=== PATIENT | male | born 1990 | race Caucasian/White ===

== ENCOUNTER 2019-04-06 19:50 | Emergency (ER) | payer SELFPAY ==
[2019-04-06 19:55] VITALS: BP 114/77; BMI 33.3
[2019-04-06] MEDS ORDERED: SODIUM CHLORIDE 2,722 ML IV ONE (20:23)
--- NOTE | 2019-04-06 20:23 | PDOC ---
History of Present Illness - General Chief Complaint: Respiratory Stated Complaint: FEVER Time Seen by Provider: 04/06/19 20:19 History Source: Patient - History of Present Illness Initial Comments: 04/06/19 20:45 Chief complaint: Fever Patient is a healthy 28-year-old male with 3 days of fever, cough, vomiting since yesterday. GENERAL/CONSTITUTIONAL: No fever, weakness. dizziness HEAD, EYES, EARS, NOSE AND THROAT: No change in vision. No ear pain or discharge. No sore throat. CARDIOVASCULAR: No chest pain RESPIRATORY: + shortness of breath or cough GASTROINTESTINAL: + pain, nausea, vomiting, diarrhea or constipation GENITOURINARY: No dysuria MUSCULOSKELETAL: No neck or back pain SKIN: No rash NEUROLOGIC: No headache, vertigo, loss of consciousness, or loss of sensation. GENERAL: The patient is awake, alert, and fully oriented, in no acute distress. HEAD: Normal with no signs of trauma. EYES: Pupils equal, round and reactive to light, sclera anicteric, conjunctiva clear. ENT: pharynx: no erythema, no exudate, uvula midline NECK: supple CHEST: Poor inspiration, unable to take full inspiration and starts coughing, nontender, rr ABD: soft, epigastric tenderness BACK: no tenderness or signs of injury EXTREMITIES: Normal range of motion, no edema. NEUROLOGICAL: Normal speech, normal gait. SKIN: Warm, Dry Past History - Past Medical History Allergies/Adverse Reactions: Allergies Allergy/AdvReac Type Severity Reaction Status Date / Time No Known Allergies Allergy Verified 04/06/19 19:55 Home Medications: Ambulatory Orders No Home Medications 0 dose .ROUTE UTDICT 03/31/13 Azithromycin [Zithromax -] 250 mg PO UTDICT #6 tab 04/07/19 Oseltamivir Phosphate [Tamiflu] 75 mg PO BID #10 capsule 04/07/19 COPD: No GI Disorders: Yes (GASTRITIS) - Psycho Social/Smoking Cessation Hx Smoking History: Never smoked Have you smoked in the past 12 months: No Number of Cigarettes Smoked Daily: 0 Hx Alcohol Use: No *Physical Exam - Vital Signs Last Vital Signs Temp Pulse Resp BP Pulse Ox 102.9 F H 103 H 20 114/77 93 L 04/06/19 19:53 04/06/19 19:53 04/06/19 19:53 04/06/19 19:53 04/06/19 19:53 Heart Score/ECG Review - ECG Intrepretation Comment:: 04/06/19 22:38 2208 normal sinus rhythm at 83, QTc 439, no ST or T wave changes ED Treatment Course - LABORATORY CBC & Chemistry Diagram: 04/06/19 20:45 04/06/19 20:45 Medical Decision Making - Medical Decision Making 04/06/19 20:47 28-year-old male with 3 days of fever, cough, vomiting, epigastric pain. Patient's tachycardic, febrile, oxygen level of 93, poor respiratory effort, unable to take a deep breath. Patient may have the flu, pneumonia, been vomiting, epigastric pain, will get sepsis screening, fluids, Zofran, Tylenol. Patient will be transferred to the main ER for higher level of care discussed with Dr. Storm Patient is flu A positive, will give Tamiflu, patient will get nebulizer treatment, patient will be signed out to [facility] as per Dr. Storm Patient does not smoke or drink alcohol 04/06/19 22:05 Patient is able to take better breaths, no obvious wheezing or rhonchi, patient sat off oxygen is 92% 04/06/19 22:35 temp 101.3, will give motrin 04/07/19 12:28 In reviewing chart saw the patient had official x-ray report that showed he had pneumonia. Called patient to discuss with him further. Patient states his breathing is improved but he has headache. Instructed patient how to treat headache with Motrin and Tylenol and frequency. Encourage patient to come back so he can be evaluated in person. Patient states his is also sick and that she is probably coming to the hospital and he has a 3-year-old he does not want to leave at home. Again patient was encouraged to return to the ER and informed that he can get much sicker. [place] 65 does not recommend hospitalization at this time, discussed antibiotics and since patient is reluctant to return to the ER now will send prescription for Zithromax to pharmacy of choice. 04/07/19 12:31 Discharge - Discharge Information Problems reviewed: Yes Clinical Impression/Diagnosis: Shortness of breath, Influenza A Fever Qualifiers: Fever type: unspecified Qualified Code(s): R50.9 - Fever, unspecified Condition: Fair Disposition: HOME - Additional Discharge Information Prescriptions: Azithromycin [Zithromax -] 250 mg PO UTDICT #6 tab Oseltamivir Phosphate [Tamiflu] 75 mg PO BID #10 capsule - Follow up/Referral Referrals: Mauri Stanley MD [Staff Physician] - - Patient Discharge Instructions Patient Printed Discharge Instructions: DI for H1N1 Influenza -- Adult Additional Instructions: Your Discharge Instructions: You must call primary care physician within 24 hours to arrange follow-up. Return to the Emergency Department with any new, persistent or worsening symptoms, for fever, chills, SOB, dizziness or any other concerning changes that may occur. Drink plenty of fluids. Take the Tamiflu as prescribed. Take Tylenol as needed for pain and fever. - Post Discharge Activity Work/Back to School Note: Back to Work
[2019-04-06] MEDS ORDERED: ACETAMINOPHEN 1000 MG/100 ML VIAL (NON FORMULARY) IVPB ONE (20:25)
[2019-04-06] MEDS ORDERED: ONDANSETRON 4 MG/2 ML VIAL IVPUSH ONE (20:25)
[2019-04-06 21:07] LABS: BASO % 0.5 % (0-2.0); EOS % 0.1 % (0-4.5); HEMATOCRIT 46.8 % (35.4-49); HEMOGLOBIN 16.1 GM/dL (11.7-16.9); LYMPH % 17.9 % (8-40); MCH 30.9 pg (25.7-33.7); MCHC 34.5 g/dl (32.0-35.9); MEAN CELL VOLUME 89.5 fl (80-96); MEAN PLT VOLUME 8.3 fl (7.5-11.1); MONO % 8.7 % (3.8-10.2); NEUT % 72.8 % (42.8-82.8); PLATELET COUNT 179 K/MM3 (134-434); RBC 5.23 M/mm3 (4.00-5.60); RDW 13.3 % (11.9-15.9); WHITE BLOOD COUNT 7.4 K/mm3 (4.0-10.0)
[2019-04-06] MEDS ORDERED: ALBUTEROL SO4 2.5/IPRATROPIUM 0.5 INH SOL 3 ML VIAL.NEB. NEB ONE (21:16)
[2019-04-06] MEDS ORDERED: OSELTAMIVIR PHOSPHATE 75 MG CAPSULE PO ONE (21:16)
[2019-04-06 21:20] LABS: INR 1.21 (0.83-1.09); PROTHROMBIN TIME (PATIENT) 14.3 SEC (9.7-13.0)
[2019-04-06] MEDS ORDERED: OSELTAMIVIR PHOSPHATE 75 MG CAPSULE ONE (21:22)
[2019-04-06 21:23] LABS: ACTIVATED PTT 38.4 SECONDS (25.2-36.5)
[2019-04-06 21:42] LABS: BILIRUBIN,TOTAL 0.5 mg/dL (0.2-1); BLOOD UREA NITROGEN 12.3 mg/dL (7-18); CALCIUM 8.8 mg/dL (8.5-10.1); POTASSIUM 3.7 mmol/L (3.5-5.1); TOT PROT 8.2 g/dl (6.4-8.2)
[2019-04-06] MEDS ORDERED: IBUPROFEN 600 MG TABLET (FP) PO ONE ×2 (22:36→22:39)
--- NOTE | 2019-04-07 00:03 | PDOC ---
*Physical Exam - Vital Signs Last Vital Signs Temp Pulse Resp BP Pulse Ox 102.9 F H 103 H 20 114/77 93 L 04/06/19 19:53 04/06/19 19:53 04/06/19 19:53 04/06/19 19:53 04/06/19 19:53 ED Treatment Course - LABORATORY CBC & Chemistry Diagram: 04/06/19 20:45 04/06/19 20:45 - ADDITIONAL ORDERS Additional order review: Laboratory Results 04/06/19 04/06/19 04/06/19 20:45 20:45 20:45 PT with INR 14.30 H INR 1.21 H PTT (Actin FS) 38.4 H Sodium 137 Potassium 3.7 Chloride 104 Carbon Dioxide 24 Anion Gap 10 BUN 12.3 Creatinine 1.0 Est GFR (CKD-EPI)AfAm 118.19 Est GFR (CKD-EPI)NonAf 101.97 Random Glucose 92 Lactic Acid 1.6 Calcium 8.8 Total Bilirubin 0.5 AST 212 H ALT 291 H Alkaline Phosphatase 83 Total Protein 8.2 Albumin 4.0 Lipase 373 04/06/19 20:45 RBC 5.23 MCV 89.5 MCHC 34.5 RDW 13.3 MPV 8.3 Neutrophils % 72.8 Lymphocytes % 17.9 D Monocytes % 8.7 Eosinophils % 0.1 D Basophils % 0.5 - Medications Given in the ED: ED Medications Discontinued Medications Generic Name Dose Route Start Last Admin Trade Name Freq PRN Reason Stop Dose Admin Acetaminophen 1,000 mg 04/06/19 20:25 04/06/19 21:06 Ofirmev Injection - IVPB 04/06/19 20:26 1,000 mg ONCE ONE Administration Albuterol/Ipratropium 1 amp 04/06/19 21:16 04/06/19 21:20 Duoneb - NEB 04/06/19 21:17 1 amp ONCE ONE Administration Sodium Chloride 2,722 mls @ 1,361 mls/hr 04/06/19 20:23 04/06/19 21:06 Normal Saline - 30 ml/kg infuse over 2 hr (2722 ml) 04/06/19 22:22 1,361 mls/hr IV Administration ONCE ONE Ibuprofen 600 mg 04/06/19 22:36 04/06/19 22:40 Motrin - PO 12/07/19 22:37 600 mg ONCE ONE Administration Ondansetron HCl 4 mg 04/06/19 20:25 04/06/19 21:06 Zofran Injection IVPUSH 04/06/19 20:26 4 mg ONCE ONE Administration Oseltamivir Phosphate 75 mg 04/06/19 21:16 04/06/19 21:25 Tamiflu - PO 04/06/19 21:17 75 mg ONCE ONE Administration Medical Decision Making - Medical Decision Making 04/07/19 00:01 Patient endorsed to me to follow labs, x-ray and disposition. Patient seen and evaluated he is in no acute distress currently. Lungs are clear Repeat vitals show O2 sat of 95% on room air, afebrile, not tachycardic. He received Tamiflu 75 mg p.o. We will continue Rx to the pharmacy I discussed the physical exam findings, ancillary test results and final diagnoses with the patient. I answered all of the patient's questions. The patient was satisfied with the care received and felt comfortable with the discharge plan and treatment plan. The Patient agrees to follow up with the primary care physician within 24-72 hours. Discharge - Discharge Information Problems reviewed: Yes Clinical Impression/Diagnosis: Shortness of breath, Influenza A Fever Qualifiers: Fever type: unspecified Qualified Code(s): R50.9 - Fever, unspecified Condition: Fair Disposition: HOME - Additional Discharge Information Prescriptions: Oseltamivir Phosphate [Tamiflu] 75 mg PO BID #10 capsule - Follow up/Referral Referrals: Mauri Stanley MD [Staff Physician] - - Patient Discharge Instructions Patient Printed Discharge Instructions: DI for H1N1 Influenza -- Adult Additional Instructions: Your Discharge Instructions: You must call primary care physician within 24 hours to arrange follow-up. Return to the Emergency Department with any new, persistent or worsening symptoms, for fever, chills, SOB, dizziness or any other concerning changes that may occur. Drink plenty of fluids. Take the Tamiflu as prescribed. Take Tylenol as needed for pain and fever. - Post Discharge Activity Work/Back to School Note: Back to Work
[2019-04-07 00:10] VITALS: TEMP 98.9
[2019-04-07 00:11] VITALS: PULSE 90
--- NOTE | 2019-04-08 01:02 | EKG ---
Test Reason : Blood Pressure : / mmHG Vent. Rate : 083 BPM Atrial Rate : 083 BPM P-R Int : 144 ms QRS Dur : 096 ms QT Int : 374 ms P-R-T Axes : 048 059 018 degrees QTc Int : 439 ms NORMAL SINUS RHYTHM NORMAL ECG NO PREVIOUS ECGS AVAILABLE Confirmed by MELISSA SHIN MD ([id number]) on 04/08/2019 1:01:55 AM Referred By: Confirmed By:MELISSA SHIN MD
== END 2019-04-07 00:34 | disposition home or self-care (01) ==
LOC: JER 19:50
PROC: 3E0F7GC Introduction of Other Therapeutic Substance into Respiratory Tract, Via Natural or Artificial Opening (ICD-10-PCS; principal; 2019-04-06)
PROC: 3E033NZ Introduction of Analgesics, Hypnotics, Sedatives into Peripheral Vein, Percutaneous Approach (ICD-10-PCS; 2019-04-06)
PROC: 3E033GC Introduction of Other Therapeutic Substance into Peripheral Vein, Percutaneous Approach (ICD-10-PCS; 2019-04-06)
PROC: 3E0337Z Introduction of Electrolytic and Water Balance Substance into Peripheral Vein, Percutaneous Approach (ICD-10-PCS; 2019-04-06)
DX: J09.X2 Influenza due to identified novel influenza A virus with other respiratory manifestations (principal); R50.9 Fever, unspecified; R06.02 Shortness of breath
CPT/HCPCS: 36415; 71045-TC-FY; 80053; 83605; 83690; 85025; 85610; 85730; 87040; 87070; 87804; 87880; 93005; 93010; 99283-25; J0131; J7030

== ENCOUNTER 2019-04-07 17:04 | Emergency (ER) | payer SELFPAY ==
[2019-04-07 17:09] VITALS: BMI 33.3
[2019-04-07 18:29] VITALS: TEMP 101.8
[2019-04-07] MEDS ORDERED: SODIUM CHLORIDE 0.9% 500 ML INFUS.BAG IV ONE (18:56)
[2019-04-07] MEDS ORDERED: ONDANSETRON 4 MG/2 ML VIAL IVPUSH ONE (18:58)
[2019-04-07] MEDS ORDERED: AZITHROMYCIN 250 MG TABLET PO ONE (18:59)
[2019-04-07] MEDS ORDERED: ALBUTEROL SO4 2.5/IPRATROPIUM 0.5 INH SOL 3 ML VIAL.NEB. NEB ONE ×2 (18:59→19:27)
[2019-04-07] MEDS ORDERED: KETOROLAC TROMETHAMINE 30 MG/1 ML VIAL IVPUSH ONE (19:01)
[2019-04-07] MEDS ORDERED: ONDANSETRON 4 MG/2 ML VIAL ONE (19:28)
[2019-04-07] MEDS ORDERED: AZITHROMYCIN 250 MG TABLET ONE (19:28)
[2019-04-07] MEDS ORDERED: KETOROLAC TROMETHAMINE 30 MG/1 ML VIAL ONE (19:28)
[2019-04-07 19:32] LABS: HEMATOCRIT 49.2 % (35.4-49); HEMOGLOBIN 16.8 GM/dL (11.7-16.9); MCH 30.7 pg (25.7-33.7); MCHC 34.1 g/dl (32.0-35.9); MEAN CELL VOLUME 90.1 fl (80-96); MEAN PLT VOLUME 8.6 fl (7.5-11.1); PLATELET COUNT 179 K/MM3 (134-434); RBC 5.46 M/mm3 (4.00-5.60); RDW 13.7 % (11.9-15.9); WHITE BLOOD COUNT 5.9 K/mm3 (4.0-10.0)
[2019-04-07 19:33] LABS: PH,URINE 5.5 (5.0-8.0); URINE APPEARANCE CLEAR; URINE BILIRUBIN NEGATIVE (NEGATIVE); URINE COLOR YELLOW; URINE GLUCOSE (UA) NEGATIVE (NEGATIVE); URINE KETONE NEGATIVE (NEGATIVE); URINE LEUK ESTERASE NEGATIVE (NEGATIVE); URINE NITRITE NEGATIVE (NEGATIVE); URINE PROTEIN NEGATIVE (NEGATIVE); URINE UROBILINOGEN 0.2 mg/dL (0.2-1.0)
[2019-04-07 20:04] LABS: ALBUMIN 3.7 g/dl (3.4-5.0); BILIRUBIN,TOTAL 0.4 mg/dL (0.2-1); BLOOD UREA NITROGEN 11.8 mg/dL (7-18); CALCIUM 8.5 mg/dL (8.5-10.1); CREATININE 0.9 mg/dL (0.55-1.3); POTASSIUM 4.4 mmol/L (3.5-5.1); TOT PROT 7.8 g/dl (6.4-8.2)
--- NOTE | 2019-04-07 20:25 | PDOC ---
History of Present Illness - General Chief Complaint: Respiratory Stated Complaint: PNEUMONIA/SYMPTOMS Time Seen by Provider: 04/07/19 19:18 History Source: Patient Exam Limitations: No Limitations - History of Present Illness Initial Comments: 04/07/19 19:40 Patient is a 28-year-old male no past medical history was seen here yesterday diagnosed with influenza A, and was called back for an reading on x-ray of a lingular pneumonia. Patient was called in a prescription to his pharmacy for Zithromax which he did obtain but did not take. He is here with complaints of "I do not feel good". Patient states that he is still coughing, headache and has body aches. States he has not been able to eat in 4 days. He is not vomiting currently last time vomited was this morning prior to taking his Tamiflu. He did take the Tamiflu this morning and tolerated. States he thought the Zithromax but because he did not feel well he did not take the medication. Patient denies any symptoms currently of nausea or vomiting, diarrhea. He is more concerned about his body aches and coughing. PMHX: As above PSOCHX: Neg cig, etoh, drug ALL: NKDA GENERAL/CONSTITUTIONAL: [No fever or chills. No weakness. No weight change.] HEAD, EYES, EARS, NOSE AND THROAT: [No change in vision. No ear pain or discharge. No sore throat.] CARDIOVASCULAR: [No chest pain or shortness of breath.] RESPIRATORY: [(-) cough, wheezing, or hemoptysis.] GASTROINTESTINAL: [No nausea, vomiting, diarrhea or constipation. No rectal bleeding.] GENITOURINARY: [No dysuria, frequency, or change in urination.] MUSCULOSKELETAL: [(+) joint or muscle swelling or pain. No neck or back pain.] SKIN AND BREASTS: [No rash or easy bruising.] NEUROLOGIC: [(+) headache, vertigo, loss of consciousness, or loss of sensation. ] PSYCHIATRIC: [No depression or anxiety.] ENDOCRINE: [No increased thirst. No abnormal weight change.] HEMATOLOGIC/LYMPHATIC: [No anemia, easy bleeding, or history of blood clots.] ALLERGIC/IMMUNOLOGIC: [No hives or skin allergy. No latex allergy.] GENERAL: [The patient is awake, alert, and fully oriented, in mild distress, intermittently coughing.] HEAD: [Normal with no signs of trauma.] EYES: [Pupils equal, round and reactive to light, extraocular movements intact, sclera anicteric, conjunctiva clear.] ENT: [Ears normal, nares patent, (+) nasal congestion, oropharynx clear without exudates. Moist mucous membranes.] NECK: [Normal range of motion, supple without lymphadenopathy, JVD, or masses.] LUNGS: [Breath sounds equal, clear to auscultation bilaterally. No wheezes, and no crackles.] HEART: [Regular rate and rhythm, normal S1 and S2 without murmur, rub.] ABDOMEN: [Soft, nontender, normoactive bowel sounds. No guarding, no rebound. No masses.] EXTREMITIES: [Normal range of motion, no edema. No clubbing or cyanosis. No cords, erythema, or tenderness.] NEUROLOGICAL: [Cranial nerves II through XII grossly intact. Normal speech, normal gait.] PSYCH: [Normal mood, normal affect.] SKIN: [Warm, Dry, normal turgor, no rashes or lesions noted.] Past History - Past Medical History Allergies/Adverse Reactions: Allergies Allergy/AdvReac Type Severity Reaction Status Date / Time No Known Allergies Allergy Verified 04/07/19 17:09 Home Medications: Ambulatory Orders Albuterol Sulfate Inhaler - [Ventolin HFA Inhaler -] 1 - 2 inh PO QID #1 inhaler 04/07/19 Azithromycin [Zithromax -] 250 mg PO UTDICT #6 tab 04/07/19 Oseltamivir Phosphate [Tamiflu] 75 mg PO BID #10 capsule 04/07/19 COPD: No GI Disorders: Yes (GASTRITIS) - Psycho Social/Smoking Cessation Hx Smoking History: Never smoked Have you smoked in the past 12 months: No Number of Cigarettes Smoked Daily: 0 Hx Alcohol Use: No *Physical Exam - Vital Signs Last Vital Signs Temp Pulse Resp BP Pulse Ox 101.8 F H 87 20 105/66 97 04/07/19 18:26 04/07/19 18:26 04/07/19 18:26 04/07/19 18:26 04/07/19 18:26 ED Treatment Course - LABORATORY CBC & Chemistry Diagram: 04/07/19 19:20 04/07/19 19:20 - ADDITIONAL ORDERS Additional order review: Laboratory Results 04/07/19 04/07/19 19:20 19:20 Sodium 140 Potassium 4.4 Chloride 106 Carbon Dioxide 24 Anion Gap 9 BUN 11.8 Creatinine 0.9 Est GFR (CKD-EPI)AfAm 134.24 Est GFR (CKD-EPI)NonAf 115.82 Random Glucose 77 Calcium 8.5 Total Bilirubin 0.4 AST 133 H ALT 206 H Alkaline Phosphatase 71 Total Protein 7.8 Albumin 3.7 Lipase 285 Urine Color Yellow Urine Appearance Clear Urine pH 5.5 D Ur Specific [place] 1.016 Urine Protein Negative Urine Glucose (UA) Negative Urine Ketones Negative Urine Blood Negative Urine Nitrite Negative Urine Bilirubin Negative Urine Urobilinogen 0.2 Ur Leukocyte Esterase Negative 04/07/19 19:20 RBC 5.46 MCV 90.1 MCHC 34.1 RDW 13.7 MPV 8.6 - Medications Given in the ED: ED Medications Discontinued Medications Generic Name Dose Route Start Last Admin Trade Name Freq PRN Reason Stop Dose Admin Albuterol/Ipratropium 1 amp 04/07/19 18:59 04/07/19 19:58 Duoneb - NEB 04/07/19 19:00 1 amp ONCE ONE Administration Azithromycin 500 mg 04/07/19 18:59 04/07/19 19:58 Zithromax - PO 04/07/19 19:00 500 mg ONCE ONE Administration Ketorolac Tromethamine 30 mg 04/07/19 19:01 04/07/19 19:59 Toradol Injection - IVPUSH 04/07/19 19:02 30 mg ONCE ONE Administration Ondansetron HCl 4 mg 04/07/19 18:58 04/07/19 19:58 Zofran Injection IVPUSH 04/07/19 18:59 4 mg ONCE ONE Administration Sodium Chloride 1,000 ml 04/07/19 18:56 04/07/19 19:53 Normal Saline - IV 04/07/19 18:57 1,000 ml ONCE ONE Administration Medical Decision Making - Medical Decision Making 04/07/19 19:40 Patient is a 28-year-old male no past medical history was seen here yesterday diagnosed with influenza A, and was called back for an reading on x-ray of a lingular pneumonia. Patient was called in a prescription to his pharmacy for Zithromax which he did obtain but did not take. He is here with complaints of "I do not feel good". Patient states that he is still coughing, headache and has body aches. States he has not been able to eat in 4 days. He is not vomiting currently last time vomited was this morning prior to taking his Tamiflu. He did take the Tamiflu this morning and tolerated. States he thought the Zithromax but because he did not feel well he did not take the medication. Patient denies any symptoms currently of nausea or vomiting, diarrhea. He is more concerned about his body aches and coughing. Patient is symptomatic of the flu and pneumonia Will give neb treatment, Toradol, IV fluid, Zithromax Repeat lab work Reassess Labs reviewed noted to have slightly elevated AST and ALT will instruct patient to follow-up with her primary care doctor and possibly a GI for further work-up. 04/07/19 20:20 Patient feels improved and is tolerating p.o. Repeat vitals BP 107/65, pulse 89, O2 sat 96% on room air, temp 102.5 Tylenol 650 mg p.o. given I discussed the physical exam findings, ancillary test results and final diagnoses with the patient. I answered all of the patient's questions. The patient was satisfied with the care received and felt comfortable with the discharge plan and treatment plan. The Patient agrees to follow up with the primary care physician within 24-72 hours. Discharge - Discharge Information Problems reviewed: Yes Clinical Impression/Diagnosis: Influenza A Pneumonia Qualifiers: Pneumonia type: due to unspecified organism Laterality: left Lung location: unspecified part of lung Qualified Code(s): J18.9 - Pneumonia, unspecified organism Fever Qualifiers: Fever type: unspecified Qualified Code(s): R50.9 - Fever, unspecified Condition: Stable Disposition: HOME - Additional Discharge Information Prescriptions: Albuterol Sulfate Inhaler - [Ventolin HFA Inhaler -] 1 - 2 inh PO QID #1 inhaler - Follow up/Referral Referrals: Mauri Stanley MD [Staff Physician] - - Patient Discharge Instructions Additional Instructions: Your Discharge Instructions: You must call primary care physician within 24 hours to arrange follow-up. Return to the Emergency Department with any new, persistent or worsening symptoms, for fever, chills, SOB, dizziness or any other concerning changes that may occur. It was noted on your lab work that you have slightly elevated liver enzymes. You should follow-up with a primary care doctor immediately for further evaluation or possible a emergency doctor. The number for a primary care doctor is indicated on your discharge paper. You may use this doctor or anyone that you wish. As instructed yesterday you must stay home from work for a few days so that you can give yourself time to recuperate from this illness. - Post Discharge Activity
[2019-04-07] MEDS ORDERED: ACETAMINOPHEN 325 MG TABLET (FP) PO ONE (20:40)
[2019-04-07] MEDS ORDERED: ACETAMINOPHEN 325 MG TABLET (FP) ONE (21:20)
[2019-04-07 21:25] VITALS: BP 125/82; PULSE 86
== END 2019-04-07 21:27 | disposition home or self-care (01) ==
LOC: JER 17:04
PROC: 3E0F7GC Introduction of Other Therapeutic Substance into Respiratory Tract, Via Natural or Artificial Opening (ICD-10-PCS; principal; 2019-04-07)
PROC: 3E0333Z Introduction of Anti-inflammatory into Peripheral Vein, Percutaneous Approach (ICD-10-PCS; 2019-04-07)
PROC: 3E033GC Introduction of Other Therapeutic Substance into Peripheral Vein, Percutaneous Approach (ICD-10-PCS; 2019-04-07)
PROC: 3E0337Z Introduction of Electrolytic and Water Balance Substance into Peripheral Vein, Percutaneous Approach (ICD-10-PCS; 2019-04-07)
DX: J18.9 Pneumonia, unspecified organism (principal); J09.X2 Influenza due to identified novel influenza A virus with other respiratory manifestations; R50.9 Fever, unspecified
CPT/HCPCS: 36415; 80053; 81003; 83690; 85027; 99283-25